=== PATIENT | female | born 1970 | race Caucasian/White ===

== ENCOUNTER → 2019-09-18 | Outpatient (CLI) | payer MEDICARE, OTHER, MEDICAID ==
[~2019-09-18] MED LIST: MEDROLDOSEPACK PO; NOHOMEMEDICATIONS; NORFLEX100 MG PO; TRAMADOL 50 MG50 MG PO
== END ==
LOC: M.RAD 15:35
DX: J40 Bronchitis, not specified as acute or chronic (principal); J45.40 Moderate persistent asthma, uncomplicated

== ENCOUNTER → 2020-03-21 | Outpatient (CLI) | payer MEDICARE, MEDICAID ==
--- NOTE | 2020-04-26 08:00 | SLEEP ---
[address] [address] SLEEP STUDY REPORT Name: MORALES DOTSON Room: [facility]#: [id number] Admission: 03/21/20 Attend Phys: Beto Marques DO Discharge: Date of : 72 Report #: [id number] THIS REPORT FOR: //name// CC: Beto Marques This study has been reviewed in its entirety by a board certified sleep specialist INDICATION FOR SLEEP STUDY: Hypertension with daytime sleepiness. INTERPRETATION: Total duration of the study is 418 minutes, out of which she was asleep for 321 minutes with an overall sleep efficiency of 77%. Sleep onset initially occurred 14 minutes after lying down in bed and REM onset was delayed to 249 minutes after sleep onset. N1 sleep duration was 8%, N2 duration was 60%, N3 duration was 22% and REM duration was 10%. This is a split night sleep study. During the initial part of the sleep study, the patient was not on positive airway pressure therapy for 171 minutes. During this time duration, the patient was asleep for 112 minutes. This in turn included no REM sleep. This entire duration was non-REM sleep. Throughout the diagnostic portion, the patient was lying on the left side. Mean heart rate was 92. Periodic limb movement index was elevated to 51. Periodic limb movement index with arousals were 16.1. There was severe sleep fragmentation with an arousal index elevated to 61. There were also several desaturations recorded. Overall, the patient spent 36 minutes below an O2 saturation of 90%, out of which 10.1 minutes were below and O2 saturation was 88%. During the diagnostic portion of the sleep study, we did record multiple sleep related respiratory events. These included 20 hypopneas in addition to 39 respiratory effort related arousals. Overall, apnea-hypopnea index was 10.8 with a respiratory disturbance index elevated to 31.7. The patient was now placed on CPAP therapy, was observed on CPAP therapy for 247 minutes. This included 209 minutes of sleep time, which in turn included 32 minutes in REM sleep. The patient was now observed in the supine position for 43 minutes and the rest of the time in other positions. Mean heart rate was now 89. Periodic limb movement index improved to 38.2. Periodic limb movement index with arousals improved to 6.3. Review of the CPAP titration indicates the patient was titrated beginning with a CPAP pressure of 5 cm of water, gradually increasing it to 8 cm of water with the administration of a CPAP of 7-8 cm of water, there is adequate control of the patient's sleep apnea and O2 saturation is also adequately maintained. The patient was observed in both REM as well as non-REM sleep on the final 2 CPAP pressures. We also observed the patient in the supine position. The patient, however, was not observed in the REM supine sleep. IMPRESSION: [facility] [address] [facility] [place] [address] SLEEP STUDY REPORT Name: MORALES DOTSON Room: [facility]#: [id number] Admission: 03/21/20 Attend Phys: Beto Marques DO Discharge: Date of : 72 Report #: [id number] 1. Obstructive sleep apnea with apnea-hypopnea index of 10.8 and a respiratory disturbance index of 31.7, adequately controlled with the administration of a CPAP of 7-8 cm of water. 2. Periodic limb movement disorder is noted as above, which improved significantly with the administration of CPAP therapy. RECOMMENDATIONS: 1. Recommend a CPAP of 7 cm of water with heated humidity and mask per patient's preference while asleep. During the sleep study, a ResMed AirFit F20 mask, size medium with a C-Flex of 3 was used. 2. Clinical correlation is advised regarding the patient's periodic limb movement disorder. Suggest asking the patient regarding symptoms for restless legs syndrome. Unless the patient has symptoms consistent with severe restless legs syndrome, we would suggest holding off on therapy for periodic limb movement disorder and following response to CPAP therapy first. 3. Clinical correlation is advised regarding weight loss. 4. Recommend avoiding driving or other activities requiring vigilance if drowsy. This entire sleep study was reviewed by board certified sleep physician. <ELECTRONICALLY SIGNED> By: Isai Cottrell MD 04/26/20 [id number] Cottrell MD /nt
== END ==
LOC: M.SLEEPLAB 20:00
PROVIDERS: ATTEND Family Medicine
DX: G47.34 Idiopathic sleep related nonobstructive alveolar hypoventilation (principal); G47.61 Periodic limb movement disorder; F51.01 Primary insomnia; I10 Essential (primary) hypertension; R55 Syncope and collapse; M79.604 Pain in right leg; M79.605 Pain in left leg; E11.9 Type 2 diabetes mellitus without complications; E78.2 Mixed hyperlipidemia; G47.8 Other sleep disorders; Z68.33 Body mass index [BMI] 33.0-33.9, adult